=== PATIENT | male | born 1980 | race African-American/Black ===

== ENCOUNTER 2017-10-18 13:03 | Emergency (ER) | payer OTHER ==
[~2017-10-18] VITALS: Ht 190.5 cm; Wt 195.0 kg
[2017-10-18] MEDS ORDERED: FLUORESCEIN SODIUM 1 MG OPHTHALMIC STRIP OP ONE (13:04)
[2017-10-18] MEDS ORDERED: TETRACAINE HCL 0.5% OPHTHALMIC DROPS 15 ML OP ONE (13:04)
[2017-10-18] MEDS ORDERED: BALANCED SALT IRRIG SOLN 15 ML IO ONE (13:04)
[2017-10-18 13:15] VITALS: BP_SYST 154
--- NOTE | 2017-10-18 13:17 | NUR ---
Pt placed to ER bed 04. Pt c/o swelling to left eye since this AM, noticed upon awakening. Denies trauma or injury, no visual deficits.
--- NOTE | 2017-10-18 13:50 | NUR ---
Zonia Morales, ORAL SURGERY PHYSICIAN at bedside to assess pt and perform eye exam.
[2017-10-18 14:30] VITALS: BP_SYST 145
--- NOTE | 2017-10-18 14:30 | NUR ---
Patient given written and verbal discharge instructions and verbalizes understanding. ER MD discussed with patient the results and treatment provided. Patient in stable condition. ID arm band removed. Rx of Argillite and Erythromycin given. Patient educated on pain management and to follow up with PMD. Pain Scale 0/10. Opportunity for questions provided and answered. Medication side effect fact sheet provided.
== END 2017-10-18 14:30 | disposition home or self-care (01) ==
LOC: SED 13:03
DX: S05.02XA Injury of conjunctiva and corneal abrasion without foreign body, left eye, initial encounter (principal); X58.XXXA Exposure to other specified factors, initial encounter; Y93.89 Activity, other specified; Y92.89 Other specified places as the place of occurrence of the external cause; Y99.8 Other external cause status
CPT/HCPCS: 99283